=== PATIENT | female | born 1995 | race Caucasian/White ===

== ENCOUNTER 2020-03-03 15:41 | Outpatient (CLI) | payer OTHER, SELFPAY ==
[2020-03-03 15:54] LABS: Basophils Absolute Auto 0.07 K/mm3 (0.00-0.10); Basophils Percent Auto 0.8 % (0.0-1.0); Eosinophils Absolute Auto 0.08 K/mm3 (0.02-0.50); Eosinophils Percent Auto 0.9 % (1.0-6.0); Hematocrit 41.5 % (35.0-49.0); Hemoglobin 14.1 g/dL (12.0-15.0); Immature Granulocyte Absolute 0.02 K/mm3 (0.00-0.00); Immature Granulocyte Percent A 0.2 % (0.0-0.0); Lymphocytes Absolute Auto 2.31 K/mm3 (1.10-4.50); Lymphocytes Percent Auto 26.8 % (18.0-42.0); Mean Corpuscular Hemoglobin 29.3 pg (27.0-31.0); Mean Corpuscular Volume 86.1 fL (78.0-102.0); Monocytes Absolute Auto 0.62 K/mm3 (0.10-0.90); Monocytes Percent Auto 7.2 % (2.0-11.0); Neutrophils Absolute Auto 5.5 K/mm3 (1.7-7.2); Neutrophils Percent Auto 64.1 % (50.0-70.0); Platelet Count Result 282 K/mm3 (150-420); Red Blood Count 4.82 M/mm3 (4.20-5.40); Red Cell Distribution Width 12.3 % (11.6-14.4); White Blood Count 8.6 K/mm3 (4.8-10.8)
[2020-03-03 17:00] LABS: Alanine Aminotransferase 55 U/L (14-59); Alkaline Phosphatase 72 U/L (46-116); Anion Gap 13.7 mmol/L (7-16); Aspartate Amino Transferase 30 U/L (15-37); Bilirubin,Total 0.2 mg/dL (0.00-1.00); Blood Urea Nitrogen 12 mg/dL (7-18); Carbon Dioxide 28 mmol/L (21-32); Chloride 104 mmol/L (98-108); Estimated Glomerular Filt Rate > 60; Free T4 Free Thyroxine 1.17 ng/dL (0.76-1.46); Glucose 91 mg/dL (70-99); Osmolality Calculated 293 mOsm/kg (285-295); Potassium 3.7 mmol/L (3.5-5.1); Sodium 142 mmol/L (136-145); Total Protein 6.9 g/dL (6.4-8.2); Vitamin B12 583 pg/mL (193-986)
[2020-03-06 21:36] LABS: Total Triiodothyronine (T3) 109 ng/dL (76-181)
[2020-03-08 20:08] LABS: Vitamin D 25 Hydroxy 34 ng/mL (30-100)
== END 2020-03-03 15:42 | disposition home or self-care (01) ==
LOC: CHSLAB 15:43
PROVIDERS: PCP Nurse Practitioner Family; Visit Provider Nurse Practitioner Family
DX: R53.83 Other fatigue (principal)
CPT/HCPCS: 36415; 80053; 82306; 82607; 84439; 84443; 84480; 85025

== ENCOUNTER 2020-03-13 16:03 | Emergency (ER) | payer OTHER, SELFPAY ==
--- NOTE | ~2020-03-13 | XR_ITS ---
XR elbow LT min 3V DATE: 03/13/2020 16:49 INDICATION: Kicked by cow. Posterior elbow pain. TECHNIQUE: 4 views COMPARISON: None FINDINGS: No fracture or dislocation or joint effusion. No periosteal reaction or bone destruction. IMPRESSION: Negative Reviewed, dictated and finalized at location A. IMPRESSION: Negative
[2020-03-13 16:13] VITALS: BP 143/79; PULSE 88; RESP 16; TEMP 36.5; O2SAT 98
--- NOTE | 2020-03-13 16:18 | ED.UPPEXIN ---
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 C/O pain medial and lateral elbow as well as distal,lateral arm. NO numbness/tingling right arm or forearm. Pain increases when bending elbow beyond 90 degrees. No injury elsewhere. Related Data Home Medications Medication Instructions Recorded Confirmed cetirizine 10 mg capsule 10 mg PO DAILY 10/09/19 03/13/20 Allergies Allergy/AdvReac Type Severity Reaction Status Date / Time No Known Allergies Allergy Verified 03/03/20 15:06 Review of Systems Constitutional: Constitutional: Denies chills and Denies fever(s) Respiratory: Respiratory: Denies cough PMFSH Past Medical History Medical History BMI over 35 Eczema Encounter for contraceptive surveillance Encounter for gynecological examination (general) (routine) without abnormal findings Insomnia Surgical History Surgical History [place] teeth removed Family History Family History Mother Diabetes mellitus Grandparent Diabetes mellitus Cerebrovascular accident Social History Social History Smoking status: Never smoker Alcohol intake: current Drinks per week: 2 Substance use: never Exam Const: General: no acute distress Orientation/consciousness: patient oriented x3 Extrem: General: normal to inspection Left upper extremity: normal capillary refill and elbow/forearm normal to inspection, tenderness of the distal humerus, of the lateral epicondyle and of the medial epicondyle; not of the antecubital fossa, abnormal ROM (full extension, pronation & supination. Pain at 90 degrees of elbow flexion), distal pulses intact and other (light touch sensation left hand is intact. No collateral lig. instability); no swelling, no abrasions, no lacerations, no ecchymosis and no crepitus; no edema and joint enlargement noted Course Course Emergency Course: Pt. declined analgesic Vital Signs Vital signs: Vital Signs Temperature 36.5 C 03/13/20 16:13 Pulse Rate 88 03/13/20 16:13 Respiratory Rate 16 03/13/20 16:13 Blood Pressure 143/79 H 03/13/20 16:13 Pulse Oximetry 98 03/13/20 16:13 Temperature 36.5 C 03/13/20 16:13 Pulse Rate 88 03/13/20 16:13 Respiratory Rate 16 03/13/20 16:13 Blood Pressure 143/79 H 03/13/20 16:13 Pulse Oximetry 98 03/13/20 16:13 MDM - Extremity Injury (Upper) Imaging Data Radiologist's impression: IMPRESSION: Negative Discharge Plan Discharge Clinical Impression: Contusion of elbow, left Qualifiers: Encounter type: initial encounter Qualified Code(s): S50.02XA - Contusion of left elbow, initial encounter Patient Disposition: Home, Self-Care Condition: Stable Instructions: Elbow Sprain (ED) Additional Instructions: See primary care doctor of pain worsens or does not resolve within 5 day. Ice 4x/day x 2 days. Start doing range of motion stretches in 2 - 3 days. Recheck elbow in 8 days if pain or you do not have full function of your wrist and elbow. Prescriptions: No Action Zyrtec 10 mg capsule 10 mg PO DAILY RF: 0 medroxyprogesterone [Depo-Provera] 150 mg/mL syringe 150 mg IM [id number] Qty: 1 RF: 0 Follow-up/Referrals: UNKNOWN,DOCTOR [Primary Care Provider] - Time of Disposition: 17:07
== END 2020-03-13 17:10 | disposition home or self-care (01) ==
PROVIDERS: Emergency Provider Family Medicine; PCP Nurse Practitioner Family
DX: S50.02XA Contusion of left elbow, initial encounter (principal); W55.22XA Struck by cow, initial encounter
CPT/HCPCS: 73080; 99281; 99283

== ENCOUNTER 2020-03-28 15:57 | Outpatient (RCR) | payer OTHER, SELFPAY ==
--- NOTE | 2020-03-28 17:29 | OTOPEVAL ---
Thank you for referring Mitchel Quinteros to [facility]. Please review, sign, date and return this plan of care LINUS. I agree with and certify that the following plan of care is medically necessary. Referring Physician Date Admitting Provider: Attending Provider: Geno Rosas NP Referring Provider: *OT Outpatient Evaluation Start: 03/28/20 15:31 Freq: Status: Active Protocol: Document 03/28/20 15:56 [facility] [place] (Rec: 03/28/20 17:28 [facility] [place] [id number]) Therapy Assessment Status Assessment Status Assessment Status Evaluation Outpatient Past Medical History Past Medical History No Past Medical/Surgical History Patient/Family Denies Significant Past Medical/ Surgical History Evaluation Information Problem Diagnosis L elbow pain, decreased ROM Onset 03/13/20 Cause L elbow injury Subjective Information Patient arrives to OT and Query Text:As Reported By Patient/ reports the following: Family patient was kicked by a cow while at work. She reports that it immediately swelled up and has had difficulty with any repetitive movements, heavy lifting, pushing, as well as pain with elbow extension. Patient continues to work where is wearing a compression sleeve while working and using primarily her R hand. 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 Patient is observed to position her L arm in flexion and hold against her body upon arrival of OT. Diagnostic Tests X-Rays For This Problem Yes Prior Level of Function Activity Level (Last 3 Months) Hand Dominance Right Activity of Daily Living Ability Independent Indoor/Home Mobility Independent Community Mobility Independent Stairs Ability Independent Functional Cognition (Planning, Shopping Independent , Taking Medications) Cooking Yes Cleaning Yes Laundry Yes Shopping Yes Driving Yes Home Setting Home Type House Living Situation With Parent Mobility Assistive Devices (Used Last 3 None Months) Pain Assessment
--- NOTE | 2020-04-29 13:56 | OTOPEVAL ---
Thank you for referring Mitchel Quinteros to [facility].? The patient is scheduled to be seen for therapy? ____x/week for ___ weeks. Please review, sign, date and return this plan of care LINUS. I agree with and certify that the following plan of care is medically necessary. Referring Physician Date Admitting Provider: Attending Provider: Geno Rosas NP Referring Provider: *OT Outpatient Evaluation Start: 03/28/20 15:31 Freq: Status: Active Protocol: Document 04/29/20 13:00 [facility] [place] (Rec: 04/29/20 13:55 [facility] [place] [id number]) Therapy Assessment Status Assessment Status Assessment Status Re-evaluation Outpatient Past Medical History Past Medical History No Past Medical/Surgical History Patient/Family Denies Significant Past Medical/ Surgical History Evaluation Information Problem Subjective Information Patient reports that she Query Text:As Reported By Patient/ continues to feel pain in the Family L elbow when waking in the morning as well as intermittently during and after work. Patient feels that her elbow feels ok when she isnt working. Pain is directly related to use and overall has decreased from initial evaluation. Pain Assessment Timing of Pain Assessment Timing of Pain Assessment Re-assessment Pain Scale Pain Scale Used Numeric (1 - 10) Self Report Pain Assessment Left Elbow(s) Reported Pain Level 5 Pain Score Pain Score 5: Self Report Upper Extremity Range of Motion Elbow/Forearm Range of Motion Left Elbow Flexion - Active 140 Elbow Extension - Active -5 Hand Certified Coder/Pinch Strength Assessment Hand Left Certified Coder Strength (lbs) 43 Extremity Circumference Assessment Circumference Assessment Circumference Comments L elbow: 28.5 cm General Exercise General Exercises Exercise Description isometric for biceps and Query Text:Record Sets, Reps, triceps, holding 10 seconds x Resistance, and Position 5 reps each 3# for biceps, 15 reps x 2 3# for supination, 15 reps x 2 sets Manual Therapy Manual Therapy Side Left Manual Therapy Location Elbow Patient Position Sitting Manual Therapy Treatment Soft Tissue Mobilization Treatment Comments STM and ISTM to volar elbow Query Text:Include Technique and PROM to L elbow for extension Result of Technique and flexion
== END 2020-05-17 15:59 | disposition home or self-care (01) ==
LOC: CHSOT 15:57
PROVIDERS: PCP Nurse Practitioner Family; Visit Provider Nurse Practitioner Family
DX: S59.909A Unspecified injury of unspecified elbow, initial encounter (principal)
CPT/HCPCS: 97014; 97035; 97110; 97140; 97165; 97542; G0283

== ENCOUNTER 2020-05-28 10:03 | Outpatient (CLI) | payer OTHER, SELFPAY ==
--- NOTE | ~2020-05-28 | MR_ITS ---
EXAMINATION: MR elbow LT wo con DATE: 05/28/2020 11:04 INDICATION: Left elbow injury and pain. TECHNIQUE: Magnetic resonance imaging (MRI) of the left elbow was performed without intravenous contr ast. Sequences included coronal, axial, and sagittal PD-weighted FS FSE and coronal, axial, and sagit chandler PD-weighted FSE. COMPARISON: Left elbow radiographs 03/13/2020 FINDINGS: Osseous/other: Bone alignment is normal. No fracture. Bone marrow signal intensity is normal. The elbow joint cartil age is normal. Tendons: Biceps tendon, brachialis tendon, triceps tendon, and the common flexor and extensor tendon wads are normal. Ligaments: Radial collateral ligament, lateral ulnar collateral ligament, and ulnar collateral ligament are norm al. Cubital tunnel: Ulnar nerve is normal. Fluid: There is no elbow joint effusion. IMPRESSION: 1. Normal elbow. Reviewed, dictated and finalized at location A. IMPRESSION: 1. Normal elbow.
== END 2020-05-28 10:04 | disposition home or self-care (01) ==
LOC: CHSIMG 10:04
PROVIDERS: PCP Nurse Practitioner Family; Visit Provider Nurse Practitioner Family
DX: S59.909A Unspecified injury of unspecified elbow, initial encounter (principal)
CPT/HCPCS: 73221

== ENCOUNTER 2021-01-07 08:31 | Outpatient (CLI) | payer OTHER, SELFPAY | END 2021-01-07 08:32 | disposition home or self-care (01) | LOC: CHSCOVIDVC 08:32 | PROVIDERS: PCP Nurse Practitioner Family | DX: Z23 Encounter for immunization (principal) | CPT/HCPCS: 0011A; 91301 ==

== ENCOUNTER 2021-02-04 08:17 | Outpatient (CLI) | payer OTHER, SELFPAY | END 2021-02-04 08:18 | disposition home or self-care (01) | LOC: CHSCOVIDVC 08:17 | DX: Z23 Encounter for immunization (principal) | CPT/HCPCS: 0012A; 91301 ==

== ENCOUNTER 2024-06-03 13:01 | Outpatient (NON) | payer OTHER, SELFPAY ==
[2024-06-03 13:10] LABS: Add Urine Microscopic? YES; Appearance Urine Clear (Clear); Bilirubin Urine Negative (Negative); Blood Urine 3+ (Negative); Color Urine Light Yellow (Yellow); Glucose Urine UA Negative (Negative); Ketones Urine Negative (Negative); Leukocyte Esterase Ur 1+ LEU/UL (Negative); Nitrate Urine Negative (Negative); Protein Urine 1+ (Negative); Urobilinogen Urine 0.2 mg/dL (0.2-1.0); pH Urine 6.5 (5.0-8.0)
[2024-06-03 13:30] LABS: Bacteria Urine 2+ /hpf; RBC Urine 51-75 /hpf (0-2); Squamous Epithelial Cell Urine Rare /hpf (Few)
== END 2024-06-03 13:02 | disposition home or self-care (01) ==
LOC: CHSLAB 13:01
PROVIDERS: PCP Nurse Practitioner Family; Visit Provider Nurse Practitioner Family
DX: Z87.898 Personal history of other specified conditions (principal)
CPT/HCPCS: 81001; 87077; 87086; 87088

== ENCOUNTER 2024-07-18 14:26 | Emergency (ER) | payer OTHER, SELFPAY ==
[2024-07-18 14:37] VITALS: BP 145/95; PULSE 76; RESP 20; TEMP 36.8; O2SAT 100
[2024-07-18 14:52] LABS: EDUAAPPEAR Clear; EDUABILI Negative (Negative); EDUABLOOD 3+ (Negative); EDUACOLOR1 Light/Pale; EDUAGLUCOSE Negative (Negative); EDUAKETONE Negative (Negative); EDUALEUKO 1+ (Negative); EDUANITRATE Negative (Negative); EDUAPH 6.5; EDUAPROTEIN Negative (Negative); EDUASPGRAVITY 1.015; EDUAUROBILI 0.2
--- NOTE | 2024-07-18 14:59 | ED_ITS ---
HPI - Female Genitourinary General Chief complaint: Urogenital-Female Stated complaint: UTI Time Seen by Provider: 07/18/24 14:55 Source: patient and RN notes reviewed Mode of arrival: ambulatory Limitations: no limitations History of Present Illness HPI Narrative: 28-year-old female presents with concern for urinary tract infection. She reports she has had frequent urinary tract infections over the last months. She reports she also wants to test for STDs because she had a condom break about a month ago. She denies any abnormal vaginal discharge. She reports dysuria, frequency, lower abdominal cramping, urgency. She denies chills, fever, sweats, body aches, back pain abdominal pain. MD elicited complaint: UTI Related Data Allergies Allergy/AdvReac Type Severity Reaction Status Date / Time No Known Allergies Allergy Verified 07/18/24 14:28 Review of Systems Review of Systems: CONSTITUTIONAL: Denies malaise, chills, sweats, or fever. CARDIOVASCULAR: Denies chest pain, palpitations, or edema. RESPIRATORY: Denies cough or dyspnea. GASTROINTESTINAL: Denies abdominal pain, nausea, vomiting, diarrhea GENITOURINARY: Reports dysuria, frequency, urgency, suprapubic pressure. Denies flank pain or hematuria. SKIN: Denies rash or itching. MUSCULOSKELETAL: Denies back pain or myalgia. All systems reviewed & are unremarkable except as noted in HPI and below PMFSH Past Medical History Medical History (Updated 07/18/24 @ 15:01 by Angeles Santos NP) BMI over 35 Eczema Elbow Injury Encounter for contraceptive surveillance Encounter for gynecological examination (general) (routine) without abnormal findings Insomnia Surgical History Surgical History [place] teeth removed Family History Family History Mother Diabetes mellitus Grandparent Diabetes mellitus Cerebrovascular accident Social History Social History Smoking status: Never smoker Alcohol intake: current Drinks per week: 2 Substance use: never Comments At time of signature, agree with nursing past medical, surgical, social and family history. There is no relevant family history pertinent to the presenting complaint Exam Narrative: GENERAL: Well-appearing, well-nourished, and in no acute distress. HEAD: Normocephalic. EYES: PERRLA, conjunctivae clear. NECK: Supple. No lymphadenopathy CHEST: Clear to auscultation. No respiratory distress. HEART: Regular rate and rhythm. ABDOMEN: Soft, nontender upon palpation, nondistended, normal active bowel sounds, no palpable or pulsatile masses, no guarding. No CVA tenderness SKIN: Warm, dry, no rash. NEURO: Alert and oriented x3. PSYCH: Normal mood and affect Course Course Emergency Course: Patient is aware of diagnosis, understands and agrees to treatment plan. Anticipatory guidance given. Patient agrees to follow-up as directed and is aware of reasons to seek care at the emergency department. Portions of this record may have been created with voice recognition software Level of Care: Express Care Visit Vital Signs Vital signs: Vital Signs Temperature 98.3 F 07/18/24 14:37 Pulse Rate 76 07/18/24 14:37 Respiratory Rate 20 07/18/24 14:37 Blood Pressure 145/95 H 07/18/24 14:37 Pulse Oximetry 100 07/18/24 14:37 Oxygen Delivery Room Air 07/18/24 14:37 Temperature 98.3 F 07/18/24 14:37 Pulse Rate 76 07/18/24 14:37 Respiratory Rate 20 07/18/24 14:37 Blood Pressure 145/95 H 07/18/24 14:37 Pulse Oximetry 100 07/18/24 14:37 Oxygen Delivery Room Air 07/18/24 14:37 Reviewed. MDM - Female Genitourinary MDM Narrative Medical decision making narrative: Exam findings and UA show no acute concerns or changes; patient is non-toxic appearing and is in no distress. Patient is appropriate for outpatient treatment and follow-up. Differential Diagnosis Differential diagnosis: Likely urinary tract infection and cystitis Lab Data Labs: Lab Results 07/18/24 Range/Units 14:49 POC Urine Color Light/pale POC Urine Clarity Clear POC Urine pH 6.5 POC Ur Specif [place] 1.015 POC Urine Protein Negative (Negative) POC Ur Glucose (UA) Negative (Negative) POC Urine Ketones Negative (Negative) POC Urine Blood 3+ (Negative) POC Urine Nitrite Negative (Negative) POC Urine Bilirubin Negative (Negative) POC Urine Urobilinogen 0.2 POC U Leukocyte [place] 1+ (Negative) Critical Care Time Critical Care Time Critical Care Time: No Discharge Plan Discharge Clinical Impression: Symptoms of urinary tract infection Patient Disposition: Home, Self-Care Condition: Stable Instructions: Antibiotic Form, Urinary Tract Infection in Women (ED) Additional Instructions: We will send a urine culture to the lab; if the culture identifies an organism that the prescribed antibiotic will not treat, you will receive a phone call from an urgent care staff member and an appropriate antibiotic will be prescribed. -Your symptoms should begin to improve within a day of starting antibiotics. But you should finish all the antibiotic pills you get. Otherwise your infection might come back. -Also recommend: increase water intake. Tylenol/ibuprofen as needed for pain or fever -Follow-up with your primary care provider for urine recheck or seek ER visit if condition worsens with high fever, nausea, vomiting and severe back pain. You have been tested for potential gonorrhea, chlamydia, and trichomoniasis today. You will receive a phone call in 2-3 days with the results of today's testing. Any necessary treatment will be discussed at that time. You may need to return for an injection. If you test positive for any STD It is very important that you avoid unprotected intercourse during treatment and for 7 days AFTER TREATMENT is complete and until your partner(s) have been treated. Please encourage your partner(s) to seek testing and treatment. When you have been exposed to sexually transmitted infections, it is important that you seek comprehensive testing, since we do not provide testing for all sexually transmitted infections. Some infections can have no symptoms, but cause serious health problems. Contact your health care provider or report to the emergency department if: You have genital swelling or pain, or unusual bleeding. You have joint pain, rash, swollen lymph nodes or night sweats. You are severe abdominal pain. You have a fever. Symptoms do not go away or they get worse even after treatment. You have bleeding or pain during sex. Prescriptions: New phenazopyridine [Pyridium] 200 mg tablet 200 mg PO TID PRN (Reason: pain) Qty: 6 0RF ciprofloxacin HCl 500 mg tablet 500 mg PO Q12H 7 Days Qty: 14 0RF No Action medroxyprogesterone [Depo-Provera] 150 mg/mL suspension 150 mg IM [id number] Qty: 1 3RF Follow-up/Referrals: Geno Rosas NP [Primary Care Provider] - Time of Disposition: 15:04
[2024-07-19 16:01] LABS: Trichomonas Vag PCR NOT DETECTED (NOT DETECTE)
[2024-07-19 16:25] LABS: Chlamydia trachomatis NOT DETECTED (NOT DETECTE); Neisseria gonorrhoeae PCR NOT DETECTED (NOT DETECTE)
== END 2024-07-18 15:10 | disposition home or self-care (01) ==
PROVIDERS: Emergency Provider Nurse Practitioner; PCP Nurse Practitioner Family
DX: R30.0 Dysuria (principal); R35.0 Frequency of micturition; R39.15 Urgency of urination; R10.30 Lower abdominal pain, unspecified
CPT/HCPCS: 81003; 87086; 87491; 87591; 87661; 99213; G0463

== ENCOUNTER 2024-10-19 13:45 | Outpatient (NON) | payer OTHER, SELFPAY ==
[2024-10-19 13:52] LABS: Appearance Urine Clear (Clear); Bilirubin Urine 1+ (Negative); Blood Urine 3+ (Negative); Glucose Urine UA 1+ (Negative); Ketones Urine Trace (Negative); Leukocyte Esterase Ur 3+ LEU/UL (Negative); Nitrate Urine Positive (Negative); Protein Urine 3+ (Negative); Urobilinogen Urine >=8.0 mg/dL (0.2-1.0); pH Urine 6.5 (5.0-8.0)
[2024-10-19 13:57] LABS: Add Urine Microscopic? YES; Color Urine Dark Orange (Yellow); RBC Urine 51-75 /hpf (0-2)
[2024-10-19 13:58] LABS: Bacteria Urine 1+ /hpf; Squamous Epithelial Cell Urine Few /hpf (Few); WBC Urine 31-50 /hpf (0-3)
== END 2024-10-19 13:46 | disposition home or self-care (01) ==
PROVIDERS: PCP Nurse Practitioner Family; Visit Provider Nurse Practitioner Family
DX: Z87.898 Personal history of other specified conditions (principal)
CPT/HCPCS: 81001; 87086

== ENCOUNTER 2025-03-16 15:43 | Outpatient (CLI) | payer OTHER, SELFPAY ==
--- NOTE | ~2025-03-16 | XR_ITS ---
AP and lateral views of the bilateral hips Clinical history: Pain Findings: No acute fracture or dislocation is seen. Osseous alignment is anatomic. Bilateral hip and SI joint spaces are preserved. Soft tissues are unremarkable. Impression: No significant abnormality is seen. Reviewed, dictated and finalized at location . Impression: No significant abnormality is seen.
--- NOTE | ~2025-03-16 | XR_ITS ---
Lumbosacral Spine: AP and lateral views Clinical History: Pain Findings: The normal lordotic curve is maintained. The vertebral bodies and posterior elements are i ntact. There is moderate degenerative disc narrowing L4-L5. There is mild facet arthropathy and lumba r spine. The sacroiliac joints are normally outlined. Impression: Mild degenerative spondylosis overall, as detailed above. Moderate degenerative disc narrowing at L4- L5. Reviewed, dictated and finalized at location . Impression: Mild degenerative spondylosis overall, as detailed above. Moderate degenerative disc narrowing at L4-L5.
== END 2025-03-16 15:44 | disposition home or self-care (01) ==
LOC: CHSIMG 15:44
PROVIDERS: PCP Nurse Practitioner Family; Visit Provider Nurse Practitioner Family
DX: M54.41 Lumbago with sciatica, right side (principal); M43.06 Spondylolysis, lumbar region
CPT/HCPCS: 72100; 73521

== ENCOUNTER 2025-04-02 15:19 | Outpatient (NON) | payer OTHER, SELFPAY ==
[2025-04-02 15:31] LABS: Add Urine Microscopic? NO; Appearance Urine Clear (Clear); Glucose Urine UA Negative (Negative); Leukocyte Esterase Ur Negative LEU/UL (Negative); Nitrate Urine Negative (Negative); Specific Grav Ur 1.020 (1.010-1.020)
== END 2025-04-02 15:20 | disposition home or self-care (01) ==
LOC: CHSLAB 15:20
PROVIDERS: PCP Nurse Practitioner Family; Visit Provider Nurse Practitioner Family
DX: M54.9 Dorsalgia, unspecified (principal)
CPT/HCPCS: 81003

== ENCOUNTER 2025-05-07 08:13 | Outpatient (RCR) | payer OTHER, SELFPAY ==
--- NOTE | 2025-05-07 09:54 | OPREHPOC ---
Outpatient Therapy Plan of Care This is a Multidisciplinary Plan of Care that may contain components documented by all disciplines (PT, OT, and ST.) PT Problem 1 PT Problem #1 Knowledge Deficit PT Goal 1 Goal / Goal Update Independent and compliant with HEP. Target Visit 2 PT Problem 2 PT Problem #2 Pain PT Goal 1 Goal / Goal Update Pt to report no worse than 5/10 pain in the mornings. Target Visit 10 PT Problem 3 PT Problem #3 Impaired Strength PT Goal 1 Goal / Goal Update Pt to improve bilat hip strength to 5/5. Pt to improve R knee strength to 5/5. Pt to improve lower abdominal strength to 4/5. Target Visit 10 PT Problem 4 PT Problem #4 Impaired Functional Mobility PT Goal 1 Goal / Goal Update Pt to be able to bend forward and reach her toes without low back pain to improve her ability to corn picker objects off the floor. Pt to report being able to do yoga without reproduction of pain. Pt to report 20% reduction in perceived disability on Oswestry. Target Visit 10
--- NOTE | 2025-05-07 09:54 | PTOPEVAL1 ---
Assessment and note entered by Elham Aguayo, PT Evaluation Information Assessment Status Evaluation ICD-10 Condition Codes (PT) Radiculopathy, lumbar region M54.16 Other ICD-10 Condition Codes ( M54.41 PT) Onset 01/05/2025 Subjective Information Pt reports having spasms in her lower back beginning in December, and her most recent spasm was one week ago. She reports that when her spasms occur her sciatic nerve pain and numbness kick in. She reports she feels her pain in her sacrum and hips and down into her R calf. She reports her doctor has given her pain meds, muscle relaxers, and a steroid for the first couple times she had spasms but that they have not worked for this most recent spasm. She reports her pain is at its worst in the mornings and subsides as the day goes on to something she can ignore and doesn't have to restructure her day around it. She reports she does yoga for flexibility and uses an inversion table at home. Reported Pain Level Pain Score 5: Self Report Assessment PT Clinical Summary Mrs. Quinteros is a 29 yo female presenting to skilled PT evaluation for lumbago with sciatica. She demonstrates mild deficits in abdominal, bilat hip strength and R knee strength, as well as reproduction of pain with active forward and backward bending of the lumbar spine, SLR test of the R leg and palpation to the R gluteal region. She will benefit from skilled PT intervention to address these deficits to reduce pain and improve her ability to perform daily functional and recreational activities with less pain. Plan of Care Interventions Electrical Stimulation,Gait Training,Hot Pack/Cold Pack,Manual Therapy,Mechanical Traction,Neuro Re- education,Patient/Caregiver Education,Therapeutic Activities,Therapeutic Exercise,Self-Care/Home Management Other Interventions TPDN PT Services Indicated Yes Treatment Frequency and 2x/week for 10 visits Duration These treatments will address the objective and functional deficits as defined above. The patient will be advanced safely and appropriately in order for the patient to progress towards his/her prior level of function. Additional exercises will be introduced and as well as a comprehensive home exercise program upon discharge, if needed, ?to ensure carryover of functional gains achieved in the clinic. This treatment plan has been reviewed and agreement upon by the patient.
--- NOTE | 2025-06-09 15:05 | PCPTNOTE ---
Ms. Quinteros is not a candidate for continued skilled PT. She attended 2 skilled PT visits, but was unable to continue as her pain increased significantly after each visit. It is in her best interest to seek the surgical care that she needs at this time. FANG SalgueroT
== END 2025-05-12 20:00 | disposition home or self-care (01) ==
LOC: CHSPT 08:13
PROVIDERS: PCP Nurse Practitioner Family; Visit Provider Nurse Practitioner Family
DX: M54.41 Lumbago with sciatica, right side (principal)
CPT/HCPCS: 97012; 97014; 97110; 97161; G0283

== ENCOUNTER 2025-05-08 08:46 | Outpatient (CLI) | payer OTHER, SELFPAY ==
[2025-05-08 09:13] LABS: Hematocrit 46.1 % (35.0-49.0); Hemoglobin 15.1 g/dL (12.0-15.0); Immature Granulocyte Percent A 0.3 % (0.0-0.0); Lymphocytes Absolute Auto 3.64 K/mm3 (1.10-4.50); Mean Corpuscular HGB Conc 32.8 g/dL (32-36); Mean Corpuscular Hemoglobin 28.8 pg (27.0-31.0); Mean Corpuscular Volume 87.8 fL (78.0-102.0); Nucleated Red Blood Cells Absolute Auto 0.00 K/mm3 (0.00-0.00); Nucleated Red Blood Cells Perc 0.0 % (0-0.0); Platelet Count Result 342 K/mm3 (150-420); Red Blood Count 5.25 M/mm3 (4.20-5.40); White Blood Count 9.9 K/mm3 (4.8-10.8)
[2025-05-08 09:37] LABS: Add Urine Microscopic? NO; Appearance Urine Clear (Clear); Glucose Urine UA Negative (Negative); Leukocyte Esterase Ur Negative LEU/UL (Negative); Nitrate Urine Negative (Negative); Specific Grav Ur 1.025 (1.010-1.020)
[2025-05-08 09:57] LABS: Alanine Aminotransferase 60 U/L (6-35); Albumin Level 4.2 g/dL (3.5-5.1); Alkaline Phosphatase 66 U/L (38-126); Anion Gap 10 mmol/L (4-12); Aspartate Amino Transferase 27 U/L (14-36); Bilirubin,Total 0.5 mg/dL (0.2-1.3); Blood Urea Nitrogen 16 mg/dL (7-17); Calcium 9.5 mg/dL (8.4-10.2); Carbon Dioxide 27 mmol/L (22-30); Chloride 103 mmol/L (98-107); Estimated Glomerular Filt Rate > 60; Glucose 101 mg/dL (65-110); Lipase 59 U/L (23-300); Osmolality Calculated 291 mOsm/kg (285-295); Potassium 4.3 mmol/L (3.4-5.0); Sodium 140 mmol/L (137-145); Total Protein 6.5 g/dL (6.3-8.2)
== END 2025-05-08 08:47 | disposition home or self-care (01) ==
LOC: CHSLAB 08:47
PROVIDERS: PCP Nurse Practitioner Family; Visit Provider Nurse Practitioner Family
DX: M54.9 Dorsalgia, unspecified (principal)
CPT/HCPCS: 36415; 80053; 81003; 83690; 85025

== ENCOUNTER 2025-05-13 16:03 | Outpatient (CLI) | payer OTHER, SELFPAY ==
--- NOTE | ~2025-05-13 | MR_ITS ---
EXAMINATION: MR lumbar spine wo con DATE: 05/13/2025 16:44 INDICATION: Disease of spinal cord, unspecified. TECHNIQUE: Magnetic resonance imaging (MRI) of the lumbar spine was performed without intravenous contrast. COMPARISON: Lumbar spine radiographs 03/16/2025 FINDINGS: There is 5 degrees dextrocurvature of lumbar spine. Vertebral body heights are normal. There is moderately decreased disc height at L4-L5. The distal spinal cord signal intensity is normal. The conus medullaris is at L1-L2. The following disc levels are specifically discussed: L1-L2: The disc does not extend beyond the endplate margin. There is mild left facet joint osteoarthritis. There is no neural foraminal stenosis. There is no central canal stenosis. L2-L3: The disc does not extend beyond the endplate margin. There is mild bilateral facet joint osteoarthritis. There is no neural foraminal stenosis. There is no central canal stenosis. L3-L4: The disc does not extend beyond the endplate margin. There is mild bilateral facet joint osteoarthritis. There is no neural foraminal stenosis. There is no central canal stenosis. L4-L5: The disc is bulging with superimposed right central extrusion with mass effect on right L5 nerve root in right lateral recess. There is mild bilateral facet joint osteoarthritis. There is mild bilateral neural foraminal stenosis. There is mild central canal stenosis at the midline. There is severe stenosis of right lateral recess. L5-S1: The disc does not extend beyond the endplate margin. There is severe bilateral facet joint osteoarthritis. There is no neural foraminal stenosis. There is no central canal stenosis. IMPRESSION: 1. Extrusion at L4-L5 with mass effect on right L5 nerve root. Reviewed, dictated and finalized at location K.
== END 2025-05-13 16:04 | disposition home or self-care (01) ==
PROVIDERS: PCP Family Medicine; Visit Provider Family Medicine
DX: G95.9 Disease of spinal cord, unspecified (principal); M51.26 Other intervertebral disc displacement, lumbar region
CPT/HCPCS: 72148

== ENCOUNTER 2025-06-05 10:27 | Outpatient (CLI) | payer OTHER, SELFPAY ==
--- NOTE | ~2025-06-05 | XR_ITS ---
Examination: XR chest 1V Clinical History: pre-op Comparison: None Technique: Portable AP Findings: Heart size normal. Lungs clear. No acute bony abnormality. IMPRESSION: 1. No acute cardiopulmonary findings given portable technique. Reviewed, dictated and finalized at location R.
[2025-06-05 10:54] LABS: Hematocrit 43.0 % (35.0-49.0); Hemoglobin 14.5 g/dL (12.0-15.0); Immature Granulocyte Percent A 0.2 % (0.0-0.0); Lymphocytes Absolute Auto 1.86 K/mm3 (1.10-4.50); Mean Corpuscular HGB Conc 33.7 g/dL (32-36); Mean Corpuscular Hemoglobin 29.2 pg (27.0-31.0); Mean Corpuscular Volume 86.5 fL (78.0-102.0); Nucleated Red Blood Cells Absolute Auto 0.00 K/mm3 (0.00-0.00); Nucleated Red Blood Cells Perc 0.0 % (0-0.0); Platelet Count Result 351 K/mm3 (150-420); Red Blood Count 4.97 M/mm3 (4.20-5.40); White Blood Count 8.3 K/mm3 (4.8-10.8)
[2025-06-05 10:56] LABS: Add Urine Microscopic? NO; Appearance Urine Clear (Clear); Glucose Urine UA Negative (Negative); Leukocyte Esterase Ur Negative (Negative); Nitrate Urine Negative (Negative); Specific Grav Ur 1.010 (1.010-1.020)
[2025-06-05 11:07] LABS: Alanine Aminotransferase 49 U/L (6-35); Albumin Level 4.7 g/dL (3.5-5.1); Alkaline Phosphatase 60 U/L (38-126); Anion Gap 12 mmol/L (4-12); Aspartate Amino Transferase 34 U/L (14-36); Bilirubin,Total 0.6 mg/dL (0.2-1.3); Blood Urea Nitrogen 8 mg/dL (7-17); Calcium 10.0 mg/dL (8.4-10.2); Carbon Dioxide 25 mmol/L (22-30); Chloride 107 mmol/L (98-107); Estimated Glomerular Filt Rate > 60; Glucose 100 mg/dL (65-110); Osmolality Calculated 296 mOsm/kg (285-295); Potassium 4.6 mmol/L (3.4-5.0); Sodium 144 mmol/L (137-145); Total Protein 8.5 g/dL (6.3-8.2)
[2025-06-05 11:09] LABS: INR 0.9; Partial Thromboplastin Time 29.2 Sec (23.9-30.70); Prothrombin Time 10.3 Seconds (9.50-12.1)
[2025-06-05 12:44] LABS: MRSA (PCR) NOT DETECTED (NOT DETECTE)
== END 2025-06-05 10:28 | disposition home or self-care (01) ==
LOC: CHSIMG 10:32
PROVIDERS: PCP Nurse Practitioner Family
DX: Z00.00 Encounter for general adult medical examination without abnormal findings (principal)
CPT/HCPCS: 36415; 71045; 80053; 81003; 85025; 85610; 85730; 87641

== ENCOUNTER 2025-06-07 08:07 | Outpatient (CLI) | payer OTHER, SELFPAY ==
--- NOTE | 2025-06-07 08:13 | ECG_ITS ---
Test Date: 2025-06-07 08:20:06 Measurements Intervals [place] Rate: 81 P: 43 MN: 123 QRS: 56 QRSD: 106 T: 15 QT: 372 QTc: 433 Interpretive Statements SINUS RHYTHM No previous ECG available for comparison Electronically Signed On 06-07-2025 08:43:37 CDT by Nena Foley M.D.
== END 2025-06-07 08:08 | disposition home or self-care (01) ==
PROVIDERS: PCP Nurse Practitioner Family
DX: Z00.00 Encounter for general adult medical examination without abnormal findings (principal)
CPT/HCPCS: 93005